=== PATIENT | female | born 1950 | race Caucasian/White ===

== ENCOUNTER 2018-01-13 20:22 | Emergency (ER) | payer MEDICARE, BC ==
[2018-01-13] MEDS ORDERED: Sodium Chloride 0.9% 1,000 ML IV ONE (20:58)
[2018-01-13] MEDS ORDERED: Ondansetron 4 MG/2 ML SDV IVPUSH ONE (20:58)
[2018-01-13] MEDS ORDERED: Sodium Chloride 0.9% 500 ML IV SCH (21:30)
[2018-01-13 21:33] LABS: CHLORIDE,CL 105 mmol/L (98-110); SODIUM,NA 138 mmol/L (136-146)
[2018-01-13] MEDS ORDERED: Acetaminophen 500 MG Tab PO ONE (22:08)
--- NOTE | 2018-01-13 22:13 | EDM.PDOC ---
ED HPI GENERAL MEDICAL PROBLEM - General Chief Complaint: Gastrointestinal Problem Stated Complaint: SICK Time Seen by Provider: 01/13/18 20:50 Source of Information: Reports: Patient History Limitations: Reports: No Limitations - History of Present Illness INITIAL COMMENTS - FREE TEXT/NARRATIVE: Presents reporting fever and vomiting. The patient states that 2 nights ago she had a fever and chills. She has had a cough for the last couple of days. Now today she has no appetite and this evening she has been vomiting and not able to keep oral fluids down. She denies any abdominal pain or dysuria, diarrhea, constipation. Brown formed stool today without black tarry stool. She has no ear fullness, runny nose, sore throat, chest pain or shortness of breath with her cough denies pain Pain Score (Numeric/FACES): 0 - Related Data Allergies Allergy/AdvReac Type Severity Reaction Status Date / Time Penicillins Allergy Hives Verified 01/13/18 20:37 Home Meds: Home Meds Aspirin 325 mg PO DAILY 01/13/18 [History] amLODIPine [Norvasc] 5 mg PO DAILY 01/13/18 [History] atorvaSTATin [Lipitor] 20 mg PO BEDTIME 01/13/18 [History] Past Medical History HEENT History: Reports: None Cardiovascular History: Reports: Hypertension Respiratory History: Reports: None Gastrointestinal History: Reports: None Genitourinary History: Reports: None [employer] History: Reports: Musculoskeletal History: Reports: None Neurological History: Reports: None Psychiatric History: Reports: None Endocrine/Metabolic History: Reports: None Hematologic History: Reports: None Immunologic History: Reports: None Oncologic (Cancer) History: Reports: None Dermatologic History: Reports: None - Infectious Disease History Infectious Disease History: Reports: None - Past Surgical History Head Surgeries/Procedures: Reports: None HEENT Surgical History: Reports: Other (See Below) Other HEENT Surgeries/Procedures: Cochlear Implants Female Surgical History: Reports: D&C Social & Family History - Family History Family Medical History: Noncontributory - Tobacco Use Smoking Status *Q: Never Smoker - Caffeine Use Caffeine Use: Reports: Coffee - Recreational Drug Use Recreational Drug Use: No ED ROS GENERAL - Review of Systems Review Of Systems: ROS reveals no pertinent complaints other than HPI. ED EXAM, GI/ABD - Physical Exam Exam: See Below Exam Limited By: No Limitations General Appearance: Alert, No Apparent Distress Ears: Normal External Exam, Normal TMs Nose: Normal Inspection Throat/Mouth: Normal Inspection, Normal Oropharynx Head: Atraumatic, Normocephalic Neck: Normal Inspection. No: Lymphadenopathy (L), Lymphadenopathy (R) Respiratory/Chest: No Respiratory Distress, Lungs Clear, Normal Breath Sounds Cardiovascular: Normal Peripheral Pulses, Regular Rate, Rhythm, No Murmur GI/Abdominal Exam: Normal Bowel Sounds, Soft, Non-Tender, No Distention Extremities: Normal Inspection Neurological: Alert, Oriented Psychiatric: Normal Affect, Normal Mood Skin Exam: Warm, Dry, Intact, Normal Color, No Rash Lymphatic: No Adenopathy Course - Vital Signs Last Recorded V/S: Last Vital Signs Temp 37.9 C 01/13/18 21:47 Pulse 82 01/13/18 21:47 Resp 20 01/13/18 21:47 BP 108/60 01/13/18 21:47 Pulse Ox 94 L 01/13/18 21:47 - Orders/Labs/Meds Orders: Active Orders 24 hr Category Date Time Status Sodium Chloride 0.9% [Normal Saline] 500 ml Med 01/13/18 21:30 Active IV STAT Medication Orders Sodium Chloride (Normal Saline) 500 mls @ 999 mls/hr IV STAT NATIVIDAD Last Admin: 01/13/18 21:19 Dose: 999 mls/hr Labs: Laboratory Tests 01/13/18 01/13/18 Range/Units 21:04 21:04 WBC 6.57 (4.0-11.0) K/uL RBC 4.39 (4.30-5.90) M/uL Hgb 14.1 (12.0-16.0) g/dL Hct 42.0 (36.0-46.0) % MCV 95.7 (80.0-98.0) fL MCH 32.1 H (27.0-32.0) pg MCHC 33.6 (31.0-37.0) g/dL RDW Std Deviation 44.7 (28.0-62.0) fl RDW Coeff of Deann 13 (11.0-15.0) % Plt Count 164 (150-400) K/uL MPV 10.90 (7.40-12.00) fL Neut % (Auto) 84.5 H (48.0-80.0) % Lymph % (Auto) 7.5 L (16.0-40.0) % Bremer % (Auto) 7.8 (0.0-15.0) % Eos % (Auto) 0.0 (0.0-7.0) % Baso % (Auto) 0.2 (0.0-1.5) % Neut # (Auto) 5.6 (1.4-5.7) K/uL Lymph # (Auto) 0.5 L (0.6-2.4) K/uL Bremer # (Auto) 0.5 (0.0-0.8) K/uL Eos # (Auto) 0.0 (0.0-0.7) K/uL Baso # (Auto) 0.0 (0.0-0.1) K/uL Nucleated RBC % 0.0 /100WBC Nucleated RBCs # 0 K/uL Sodium 138 (136-146) mmol/L Potassium 3.9 (3.5-5.1) mmol/L Chloride 105 (98-110) mmol/L Carbon Dioxide 23 (21-31) mmol/L BUN 9 (6.0-23.0) mg/dL Creatinine 0.7 (0.6-1.5) mg/dL Est Cr Clr Drug Dosing 67.34 mL/min Estimated GFR (MDRD) > 60.0 ml/min Glucose 155 H (60-110) mg/dL Calcium 9.8 (8.8-10.8) mg/dL Total Bilirubin 1.0 (0.1-1.5) mg/dL AST 36 (5-40) IU/L ALT 46 (8-54) IU/L Alkaline Phosphatase 72 (40-150) Total Protein 7.3 (6.0-8.0) g/dL Albumin 4.4 (3.4-4.8) g/dL Globulin 2.9 (2.0-3.5) g/dL Albumin/Globulin Ratio 1.5 (1.3-2.8) Meds: Medications Generic Name Dose Route Start Last Admin Trade Name Freq PRN Reason Stop Dose Admin Sodium Chloride 500 mls @ 999 mls/hr 01/13/18 21:30 01/13/18 21:19 Normal Saline IV 999 mls/hr STAT NATIVIDAD Administration Discontinued Medications Generic Name Dose Route Start Last Admin Trade Name Freq PRN Reason Stop Dose Admin Sodium Chloride 1,000 mls @ 999 mls/hr 01/13/18 20:58 01/13/18 21:20 Normal Saline IV 01/13/18 21:58 Not Given STAT ONE Ondansetron HCl 4 mg 01/13/18 20:58 01/13/18 21:13 Zofran IVPUSH 01/13/18 20:59 4 mg ONETIME ONE Administration - Re-Assessments/Exams Free Text/Narrative Re-Assessment/Exam: 01/13/18 22:09 Feels much better after IV fluids and Zofran. Departure - Departure Time of Disposition: 22:10 Disposition: Home, Self-Care 01 Condition: Good Clinical Impression: Influenza B, Vomiting - Discharge Information Referrals: PCP,None [Primary Care Provider] - [facility] [Outside] [facility] [Outside] Additional Instructions: 1. Drink plenty of clear fluids and rest 2. Tylenol 1 gram (two 500mg tabs) every 8 hours as needed for fever and body aches 3. Cough syrup every 6 hours as needed for cough. Take with food to prevent stomach upset and be careful for fall risk due to wooziness. 4. Return promptly for breathing problems or vomiting and not keeping down oral fluids. 5. Zofran dissolve in mouth every 6 hours as needed for nausea. - My Orders Last 24 Hours: My Active Orders 01/13/18 21:30 Sodium Chloride 0.9% [Normal Saline] 500 ml IV STAT - Assessment/Plan Last 24 Hours: My Active Orders 01/13/18 21:30 Sodium Chloride 0.9% [Normal Saline] 500 ml IV STAT
== END 2018-01-13 22:20 | disposition home or self-care (01) ==
LOC: MW.ED 20:22
DX: J10.1 Influenza due to other identified influenza virus with other respiratory manifestations (principal); R11.10 Vomiting, unspecified; I10 Essential (primary) hypertension; Z79.82 Long term (current) use of aspirin; Z79.899 Other long term (current) drug therapy; Z88.0 Allergy status to penicillin
CPT/HCPCS: 36415; 80053; 85025; 87804; 96361; 96374; 99283; J2405; J7040; 99282